=== PATIENT | female | born 1960 | race Caucasian/White ===

== ENCOUNTER 2017-08-06 18:18 | Emergency (ER) | payer OTHER ==
[~2017-08-06] VITALS: Ht 157.5 cm; Wt 76.5 kg
[2017-08-06 18:51] VITALS: Ht 157.5 cm; Wt 76.5 kg
[2017-08-06] MEDS ORDERED: ONDANSETRON 4 MG INJ IV STA (20:38)
[2017-08-06] MEDS ORDERED: KETOROLAC 30 MG INJ IV STA (20:38)
[2017-08-06] MEDS ORDERED: SOD CHLORIDE 0.9% 1,000 ML IV STA (20:38)
[2017-08-06] MEDS ORDERED: IBUPROFEN 600 MG TAB PO ONE (21:00)
--- NOTE | 2017-08-06 21:11 | RADRPT ---
PROCEDURE: CT Abdomen and Pelvis without contrast. CLINICAL INDICATION: Abdominal and pelvic pain. TECHNIQUE: CT scan of the abdomen and pelvis without contrast was performed. Coronal and sagittal reformatted images were obtained from the axial source images. Images were reviewed on a high-resolu [employer] PACS workstation. Total exam DLP is 925.56 mGy-cm. CTDIvol is 16.40 mGy. One or more of the f ollowing dose reduction techniques were used: Automated exposure control, adjustment of the mA and/o r kV according to patient size, use of iterative reconstruction technique. COMPARISON: None. FINDINGS: The lung bases are normal. There is no pleural effusion. The liver is normal in size and attenuation. There is no focal hepatic lesion. The gallbladder and bile ducts are normal. The spleen is normal in size. There is no focal splenic lesion. Both adrenals are normal with no enlargement or mass. The pancreas is unremarkable with no mass or evidence of pancreatitis. There is no renal mass or calculus. There is no ureteral calculus on either side. There is mild righ t hydronephrosis with no obstructing lesion visualized. There is no left hydronephrosis. The abdominal aorta is not dilated. Calcification is present in the aorta consistent with atheroscle rosis. There is no retroperitoneal lymphadenopathy or mass. There is no pelvic lymphadenopathy. There is a small benign calcified fibroid in the fundus of the u terus anteriorly measuring 1.2 cm. The bladder and distal ureters are normal. The periappendiceal region is unremarkable with no evidence of appendicitis. The appendix is well se en and appears normal. There is diverticulosis of the colon without evidence of diverticulitis. The bowel and mesentery are otherwise normal. There is no free fluid or free gas. There are mild degenerative changes of the spine. IMPRESSION: 1. Mild right hydronephrosis with no obstructing lesion visualized. 2. Atherosclerosis. 3. Small benign calcified fibroid in the uterus. 4. Normal appendix. 5. Diverticulosis of the colon without evidence of diverticulitis. 6. Mild degenerative changes of the spine. RPTAT: QQ .Vini León MD, MD Date Time Electronically viewed and signed by .Vini León MD, MD on 08/06/2017 21:10 .R/
[2017-08-06] MEDS ORDERED: ACETAMINOPHEN 325 MG TAB PO ONE (21:30)
[2017-08-06 21:39] LABS: BASOPHILS % 0.4 % (0.0-2.0); EOSINOPHILS # 0.1 10^3/ul (0.0-0.5); EOSINOPHILS % 1.2 % (0.0-7.0); HEMATOCRIT 40.8 % (37.0-47.0); HEMOGLOBIN 13.6 g/dl (12.0-16.0); LYMPHOCYTES # 2.3 10^3/ul (0.8-2.9); LYMPHOCYTES % 20.9 % (15.0-51.0); MEAN CORPUSCULAR HEMOGLOBIN 31.1 pg (29.0-33.0); MEAN CORPUSCULAR HGB CONC 33.3 g/dl (32.0-37.0); MEAN CORPUSCULAR VOLUME 93.2 fl (82.0-101.0); MEAN PLATELET VOLUME 9.9 fl (7.4-10.4); MONOCYTE # 0.7 10^3/ul (0.3-0.9); MONOCYTES % 6.6 % (0.0-11.0); NEUTROPHIL # 7.7 10^3/ul (1.6-7.5); NEUTROPHILS % 70.6 % (39.0-77.0); PLATELET COUNT 328 10^3/UL (140-415); RED BLOOD COUNT 4.38 10^6/ul (4.20-5.40); RED CELL DISTRIBUTION WIDTH 13.4 % (11.5-14.5); WHITE BLOOD COUNT 10.8 10^3/ul (4.8-10.8)
[2017-08-06 21:47] LABS: INR 0.85; PROTIME 11.6 Sec (12.2-14.2); PT RATIO 0.9
[2017-08-06 21:52] LABS: ADD UMIC YES; UR ASCORBIC ACID NEGATIVE (NEGATIVE); UR BACTERIA FEW /HPF (NONE SEEN); UR BILIRUBIN (Dip) NEGATIVE (NEGATIVE); UR BLOOD (Dip) 2+ mg/dL (NEGATIVE); UR CLARITY CLEAR (CLEAR); UR COLOR STRAW (YELLOW); UR GLUCOSE (Dip) NEGATIVE (NEGATIVE); UR KETONES (Dip) NEGATIVE (NEGATIVE); UR LEUKOCYTE ESTERASE (Dip) 3+ Leu/ul (NEGATIVE); UR NITRITE (Dip) NEGATIVE (NEGATIVE); UR RBC 4 /HPF (0-5); UR SPECIFIC GRAVITY (Dip) 1.002 (1.003-1.030); UR TOTAL PROTEIN (Dip) NEGATIVE (NEGATIVE); UR UROBILINOGEN (Dip) NEGATIVE (NEGATIVE)
[2017-08-06 22:02] LABS: ALBUMIN 4.6 g/dl (3.3-4.9); ALBUMIN/GLOBULIN RATIO 1.09; BILIRUBIN,INDIRECT 0.2 mg/dl (0-1.1); BILIRUBIN,TOTAL 0.2 mg/dl (0.2-1.3); CALCIUM 9.3 mg/dl (8.4-10.2); CREATININE 0.51 mg/dl (0.44-1.00); POTASSIUM 3.8 mmol/L (3.5-5.1); TOTAL PROTEIN 8.8 g/dl (6.1-8.1)
[2017-08-06] MEDS ORDERED: CEPH-443 PO (22:07)
[2017-08-06] MEDS ORDERED: IBUP-1542 PO (22:07)
[2017-08-06 22:27] VITALS: BP 133/78; PULSE 83; RESP 20
--- NOTE | 2017-08-06 23:15 | ERD ---
ER Documentation Chief Complaint Date/Time DATE: 08/06/17 TIME: 23:04 Chief Complaint burning urination/back/flank pain since yesterday HPI This patient is a 57-year-old female presenting to the emergency department with complaints of burning on urination for the past 4 days. Associated symptoms include right flank pain. And a sensation of bladder fullness. Symptoms are intermittent but worsening. She also reports low-grade fever. She denies hematuria, nausea, vomiting, diarrhea, or other symptoms currently. ROS All systems reviewed and are negative except as per history of present illness. Medications Home Meds Active Scripts Ibuprofen* (Motrin*) 600 Mg Tab, 600 MG PO Q6, #30 TAB Prov:SHERICE TRACY PA-C 08/06/17 Cephalexin* (Keflex*) 500 Mg Capsule, 500 MG PO TID for 7 Days, #21 CAP Prov:SHERICE TRACY PA-C 08/06/17 PMhx/Soc Hx Alcohol Use: No Hx Substance Use: No Hx Tobacco Use: No Smoking Status: Never smoker Physical Exam Vitals Vital Signs Date Time Temp Pulse Resp B/P Pulse Ox O2 Delivery O2 Flow Rate FiO2 08/06/17 22:27 83 20 133/78 08/06/17 18:51 100.0 104 20 177/86 100 Physical Exam Const: Toxic, well-appearing female in no acute distress. Head: Atraumatic Eyes: Normal Conjunctiva ENT: Normal External Ears, Nose and Mouth. Neck: Full range of motion..~ No meningismus. Resp: Clear to auscultation bilaterally Cardio: Regular rate and rhythm, no murmurs Abd: Soft, non tender, non distended. Normal bowel sounds. Mild bilateral suprapubic tenderness to palpation. No rebound tenderness or guarding. Negative McBurney's point tenderness. Skin: No petechiae or rashes Back: No midline or flank tenderness and no CVA tenderness. Ext: No cyanosis, or edema Neur: Awake and alert Psych: Normal Mood and Affect Result Diagram: 08/06/17204908/06/172049 Results 24 hrs Laboratory Tests Test 08/06/17 20:50 08/06/17 21:10 White Blood Count 10.810^3/ul Red Blood Count 4.3810^6/ul Hemoglobin 13.6g/dl Hematocrit 40.8% Mean Corpuscular Volume 93.2fl Mean Corpuscular Hemoglobin 31.1pg Mean Corpuscular Hemoglobin Concent 33.3g/dl Red Cell Distribution Width 13.4% Platelet Count 34434^3/UL Mean Platelet Volume 9.9fl Neutrophils % 70.6% Lymphocytes % 20.9% Monocytes % 6.6% Eosinophils % 1.2% Basophils % 0.4% Nucleated Red Blood Cells % 0.0/100WBC Neutrophils # 7.710^3/ul Lymphocytes # 2.310^3/ul Monocytes # 0.710^3/ul Eosinophils # 0.110^3/ul Basophils # 0.010^3/ul Nucleated Red Blood Cells # 0.010^3/ul Prothrombin Time 11.6Sec Prothrombin Time Ratio 0.9 INR International Normalized Ratio 0.85 Activated Partial Thromboplast Time 35.0Sec Sodium Level 140mmol/L Potassium Level 3.8mmol/L Chloride Level 103mmol/L Carbon Dioxide Level 27mmol/L Anion Gap 14 Blood Urea Nitrogen 13mg/dl Creatinine 0.51mg/dl Glucose Level 108mg/dl Calcium Level 9.3mg/dl Total Bilirubin 0.2mg/dl Direct Bilirubin 0.00mg/dl Indirect Bilirubin 0.2mg/dl Aspartate Amino Transf (AST/SGOT) 28IU/L Alanine Aminotransferase (ALT/SGPT) 29IU/L Alkaline Phosphatase 95IU/L Total Protein 8.8g/dl Albumin 4.6g/dl Globulin 4.20g/dl Albumin/Globulin Ratio 1.09 Lipase 80U/L Urine Color STRAW Urine Clarity CLEAR Urine pH 7.0 Urine Specific [place] 1.002 Urine Ketones NEGATIVEmg/dL Urine Nitrite NEGATIVEmg/dL Urine Bilirubin NEGATIVEmg/dL Urine Urobilinogen NEGATIVEmg/dL Urine Leukocyte Esterase 3+Diamante/ul Urine Microscopic RBC 4/HPF Urine Microscopic WBC 36/HPF Urine Bacteria FEW/HPF Urine Hemoglobin 2+mg/dL Urine Glucose NEGATIVEmg/dL Urine Total Protein NEGATIVEmg/dl Current Medications Medications (Trade) Dose Ordered Sig/Deep Route PRN Reason Start Time Stop Time Status Last Admin Dose Admin Sodium Chloride (NS) 1,000 ml @ 1,000 mls/hr Q1H STAT IV 08/06/17 20:38 08/06/17 21:37 DC 08/06/17 21:18 Ibuprofen (Motrin) 600 mg ONCE ONCE PO 08/06/17 21:00 08/06/17 21:25 DC 08/06/17 21:17 Ketorolac Tromethamine (Toradol) 30 mg ONCE STAT IV 08/06/17 20:38 08/06/17 20:42 DC 08/06/17 21:16 Ondansetron HCl (Zofran Inj) 4 mg ONCE STAT IV 08/06/17 20:38 08/06/17 20:42 DC 08/06/17 21:16 Acetaminophen (Tylenol Tab) 650 mg ONCE ONCE PO 08/06/17 21:30 08/06/17 21:31 DC 08/06/17 21:32 Procedures/MDM This is a 57-year-old female presenting to the emergency department with complaints of pain on urination. Additionally she has some mild right flank pain. CT showed no signs of leukocytosis or anemia. Chemistry showed no acute abnormalities. Urinalysis showed 3+ leukocytes but no protein, glucose, nitrates, or ketones. She was treated in the department with IV fluids, IV Toradol, and p.o. Tylenol. She initially had a temperature of 100.0F and this was lowered with antipyretics prior to discharge. CT scan of the abdomen and pelvis without contrast showed no significant acute abnormalities. After workup in the department her diagnosis is urinary tract infection. I have low suspicion for complicated UTI, pyelonephritis, sepsis, or other emergent conditions. The patient was stable for discharge with a prescription for Keflex and ibuprofen. She agreed with the discharge plan a diagnosis. Her questions and concerns were addressed. She is to follow-up with her primary care physician in the next 1-2 days. She is to return immediately for any new or worsening symptoms. PROCEDURE: CT Abdomen and Pelvis without contrast. CLINICAL INDICATION: Abdominal and pelvic pain. TECHNIQUE: CT scan of the abdomen and pelvis without contrast was performed. Coronal and sagittal reformatted images were obtained from the axial source images. Images were reviewed on a high-resolution PACS workstation. Total exam DLP is 925.56 mGy-cm. CTDIvol is 16.40 mGy. One or more of the following dose reduction techniques were used: Automated exposure control, adjustment of the mA and/or kV according to patient size, use of iterative reconstruction technique. COMPARISON: None. FINDINGS: The lung bases are normal. There is no pleural effusion. The liver is normal in size and attenuation. There is no focal hepatic lesion. The gallbladder and bile ducts are normal. The spleen is normal in size. There is no focal splenic lesion. Both adrenals are normal with no enlargement or mass. The pancreas is unremarkable with no mass or evidence of pancreatitis. There is no renal mass or calculus. There is no ureteral calculus on either side. There is mild right hydronephrosis with no obstructing lesion visualized. There is no left hydronephrosis. The abdominal aorta is not dilated. Calcification is present in the aorta consistent with atherosclerosis. There is no retroperitoneal lymphadenopathy or mass. There is no pelvic lymphadenopathy. There is a small benign calcified fibroid in the fundus of the uterus anteriorly measuring 1.2 cm. The bladder and distal ureters are normal. The periappendiceal region is unremarkable with no evidence of appendicitis. The appendix is well seen and appears normal. There is diverticulosis of the colon without evidence of diverticulitis. The bowel and mesentery are otherwise normal. There is no free fluid or free gas. There are mild degenerative changes of the spine. IMPRESSION: 1. Mild right hydronephrosis with no obstructing lesion visualized. 2. Atherosclerosis. 3. Small benign calcified fibroid in the uterus. 4. Normal appendix. 5. Diverticulosis of the colon without evidence of diverticulitis. 6. Mild degenerative changes of the spine. RPTAT: QQ .Vini León MD, MD Date Time Electronically viewed and signed by .Vini León MD, on 08/06/2017 21:10 Departure Diagnosis: Primary Impression: Urinary tract infection Urinary tract infection type: site unspecified Hematuria presence: without hematuria Qualified Code: N39.0 - Urinary tract infection without hematuria, site unspecified Condition: Fair Patient Instructions: Understanding Urinary Tract Infections (UTIs) Referrals: [facility] YOU HAVE RECEIVED A MEDICAL SCREENING EXAM AND THE RESULTS INDICATE THAT YOU DO NOT HAVE A CONDITION THAT REQUIRES URGENT TREATMENT IN THE EMERGENCY DEPARTMENT. FURTHER EVALUATION AND TREATMENT OF YOUR CONDITION CAN WAIT UNTIL YOU ARE SEEN IN YOUR DOCTORS OFFICE WITHIN THE NEXT 1-2 DAYS. IT IS YOUR RESPONSIBILITY TO MAKE AN APPOINTMENT FOR FOLOW-UP CARE. IF YOU HAVE A PRIMARY DOCTOR --you should call your primary doctor and schedule an appointment IF YOU DO NOT HAVE A PRIMARY DOCTOR YOU CAN CALL OUR PHYSICIAN REFERRAL HOTLINE AT IF YOU CAN NOT AFFORD TO SEE A PHYSICIAN YOU CAN CHOSE FROM THE FOLLOWING COUNTS INCLUDE 234 BEDS AT THE [facility] [address] [facility] [address] [facility] [address] [facility] [address] [facility] [address] [facility] [facility] [address] Additional Instructions: Follow up with your PCP within the next 1-3 days for a repeat evaluation. If you require a referral to a specialist, your Primary Care Provider may be able to provide this for you. In most patient cases, a referral is not required. If you have further questions regarding this matter, please ask your Primary Care Provider. Return the the emergency department immediately if symptoms worsen or change. If you have any questions regarding medications, ask your pharmacist or us before you leave. If any adverse reactions, occur while taking your medications, discontinue the treatment and return to the emergency department immediately. If any new or worsening symptoms, uncontrolled fevers, or other unexplained symptoms occur, return to the emergency department immediately. Take your medications as directed, and complete the entire course of treatment. SHERICE TRACY PA-C Aug 06, 2017 23:14
== END 2017-08-06 22:27 | disposition home or self-care (01) ==
LOC: FTE 18:18
DX: N39.0 Urinary tract infection, site not specified (principal); R10.9 Unspecified abdominal pain
CPT/HCPCS: 36415; 74176; 80053; 81001; 83690; 85025; 85610; 85730; 96374; 96375; J1885; J2405; J7030; Z7502; Z7610